=== PATIENT | male | born 1960 | race African-American/Black ===

== ENCOUNTER 2018-03-07 19:37 | Emergency (ER) | payer MEDICAID ==
[~2018-03-07] VITALS: Ht 182.9 cm; Wt 101.0 kg
[2018-03-07 23:03] VITALS: BP 146/93
== END 2018-03-07 23:29 | disposition home or self-care (01) ==
LOC: ER 23:10
DX: R03.0 Elevated blood-pressure reading, without diagnosis of hypertension (principal); J45.909 Unspecified asthma, uncomplicated; Z98.890 Other specified postprocedural states
CPT/HCPCS: 99281; Z7610

== ENCOUNTER 2019-06-06 09:19 | Emergency (ER) | payer BC, MEDICAID ==
[~2019-06-06] VITALS: Ht 182.9 cm; Wt 115.0 kg
[2019-06-06] MEDS ORDERED: ALBUTEROL (0.083%) 2.5MG/3ML NEB HHN STA (13:37)
[2019-06-06] MEDS ORDERED: PREDNISONE 20MG TABLET PO STA (13:37)
[2019-06-06] MEDS ORDERED: IPRATROPIUM BROMIDE (0.02%) 0.5MG/2.5ML NEB HHN STA (13:37)
[2019-06-06 15:39] VITALS: BP 135/75
== END 2019-06-06 15:44 | disposition home or self-care (01) ==
LOC: ER 09:19
DX: J45.901 Unspecified asthma with (acute) exacerbation (principal); Z98.890 Other specified postprocedural states
CPT/HCPCS: 94640; 99283; J7512; J7611; Z7610